=== PATIENT | female | born 2000 | race Two or more races ===

== ENCOUNTER 2025-03-03 22:37 | Emergency (ER) | payer MEDICAID, SELFPAY ==
[2025-03-03 22:38] VITALS: BMI 24.4
--- NOTE | 2025-03-03 22:42 | PD.EDABDPN ---
ED Abdominal Pain RME/HPI General Chief Complaint: Abdominal Pain Stated complaint: UPPER ABD PAIN AND NAUSEA Time seen by provider: 03/03/25 22:53 Arrival date/time: 03/03/25 22:37 RME / HPI RME / HPI narrative: This section includes all my notes and documentations, including HPI, PE, and ED course. Darrius Hurtado MD HPI: 24yo female with no significant past medical history presents to the ED for a chief complaint of abdominal/pelvic pain with nausea and vomiting on and off for one week. No fever, chills, UTI symptoms. No other complaints. ROS: All negative except as documented in HPI. Physical Exam: General: Alert and oriented. No acute distress when remaining still. Eyes: Conjunctivae and lids clear. ENT: No nasal congestion. Neck: Supple. Heart: RRR. Lungs: No respiratory distress. Good air movement. No rhonchi, wheezing, rales. Abdomen: Soft with pelvic tenderness. Normal bowel sounds. No distension. No rebound or guarding. Back: No CVA tenderness. Skin: Warm and dry. Neuro: Alert and oriented X 3. I reviewed all diagnostic test results. My review of the US transvaginal report is ovarian cysts. My review of the US gallbladder report is NAD. My review of the CT abdomen pelvis report is pelvic fluid. Blood tests and urine tests are unremarkable. At this point, diagnoses include ovarian cyst(s). Treatment here included NS,.Toradol, and Zofran. Significant improvement noted. 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 Based on my best medical judgment, made decision no further evaluation or treatment indicated at this time. Patient understands and agrees to the discharge instructions customized and printed, see below. Discharge instructions from Dr. Hurtado: -- After extensive evaluation, there is no emergency such as appendicitis needing urgent surgery. -- Your discomfort is from ovarian cyst(s). -- In young females, it is normal to have ovarian cysts (sacs of fluid) that come and go depending on the menstruation. If a cyst ruptures, it can cause severe pain until your body reabsorbs the fluid. Larger cyst can cause pain. -- Apply ice or heat if helpful. Tylenol/ibuprofen as needed. -- See a private doctor on 03/06/2025 for recheck and further care. Ask to review all test results and official radiology reports, to make sure you receive all necessary follow-ups and monitoring. Ask for a referral to see a assembler caterpillar spider to make sure there is no other serious underlying conditions. -- Seek immediate medical care with worsening, fever, or with any concerns. Darrius Hurtado MD Related Data Allergies Allergy/AdvReac Type Severity Reaction Status Date / Time No Known Allergies Allergy Verified 03/03/25 22:46 Review of Systems Review of Systems Systems Reviewed: All systems reviewed, normal except as documented Past Medical History Social History SMOKING STATUS: Never smoker ED Exam Narrative Physical exam: As noted in HPI. Course Quality Measures none Orders Category Date Time Status Saline [Insert IV] NOW Care 03/03/25 22:[address] abdomen pelvis wo con Stat Exams 03/03/25 22:52 Completed US gall bladder Stat Exams 03/04/25 00:00 Taken US transvaginal Stat Exams 03/04/25 00:00 Taken Amylase Stat Lab 03/03/25 23:14 Completed Bilirubin,Direct Stat Lab 03/03/25 23:14 Completed CBC Stat Lab 03/03/25 23:14 Completed CMP [Comprehensive Metabolic Panel] Stat Lab 03/03/25 23:14 Completed HCG Qualitative,Urine Stat Lab 03/03/25 22:53 Completed Lipase Stat Lab 03/03/25 23:14 Completed Magnesium Stat Lab 03/03/25 23:14 Completed UA, C/S IF [Urinalysis, C/S if Indicated] Stat Lab 03/03/25 22:53 Completed Ketorolac Inj [Toradol Inj] Med 03/03/25 22:51 Discontinued 30 mg IVP X1 ONE Ondansetron Inj [Zofran Inj] Med 03/03/25 22:51 Discontinued 4 mg IVP X1 ONE Sodium Chloride 0.9% 1000 ml [Ns] 1,000 ml Med 03/03/25 22:51 Discontinued IV 999 mls/hr Vital Signs Vital signs: Vital Signs Temperature 98.4 F 03/03/25 22:56 Pulse Rate 106 H 03/03/25 22:56 Respiratory Rate 16 03/03/25 22:56 Blood Pressure 112/89 H 03/03/25 22:56 Pulse Oximetry (%) 100 03/03/25 22:56 Oxygen Delivery Method Room Air 03/03/25 22:56 Abdominal Pain MDM MDM Narrative MDM Narrative:: 24yo female with no significant past medical history presents to the ED for a chief complaint of abdominal/pelvic pain with nausea and vomiting on and off for one week. No fever, chills, UTI symptoms. No other complaints. Patient data External records reviewed:: [facility] previous records (Per chart review, patient has no relevant previous ED visits.) Clinical information provided by:: patient Social determinants that could affect healthcare access:: none Patient has the following chronic illnesses:: none How is presenting disease/condition affected by chronic disease/condition?: no chronic disease Evaluation data The following diagnostics were reviewed and interpreted by me:: lab results and radiology exam(s) Lab and/or radiology exams considered but not ordered:: none Interpretation Summary: I reviewed all diagnostic test results. My review of the US transvaginal report is ovarian cysts. My review of the US gallbladder report is NAD. My review of the CT abdomen pelvis report is pelvic fluid. Blood tests and urine tests are unremarkable. Medications / Prescriptions Medications or Prescriptions considered but not ordered:: none Medication administrations:: Medication Administration History Discontinued Medications Sodium Chloride (Ns) 1,000 mls @ 999 mls/hr IV .Q1H1M ONE Stop: 03/03/25 23:51 Last Infusion: 03/03/25 23:54 Dose: Infused Documented By: Admin: 03/03/25 23:02 Dose: 999 mls/hr Documented By: BD Ketorolac Tromethamine (Ketorolac Inj 30 Mg/Ml Vial) 30 mg IVP X1 ONE Stop: 03/03/25 22:52 Last Admin: 03/03/25 23:03 Dose: 30 mg Documented By: BD Ondansetron HCl (Ondansetron Inj 2 Mg/Ml Inj 2 Ml) 4 mg IVP X1 ONE; Protocol Stop: 03/03/25 22:52 Last Admin: 03/03/25 23:03 Dose: 4 mg Documented By: BD NS, Toradol, Zofran Consultations Consultation(s) initiated? (list below): No Diagnosis Differential diagnosis abdominal pain: acute appendicitis, calculus of kidney, constipation, diverticulitis, endometriosis, pancreatitis, small bowel obstruction and other (Biliary colic, ovarian cyst, GERD, gastritis, PUD) Most likely diagnosis given after review of the tests above:: Ovarian cyst Admission Indicated Admission indicated?: not indicated Explain why admission is indicated or not indicated:: With significant improvement and no condition needing emergent intervention, there was no indication for admission. Admission Request Was there a request for admission?: No Disposition Plan Disposition Plan: Discharge Discharge Attestation Discharge Attestation: The patient and all family members were given an opportunity to ask questions and understood the discharge instructions. Discharge instructions specifically effects, indications for sooner follow up or return to the emergency department, and the expected course of current diagnosis. Patient condition: Stable Discharge Plan Plan Patient Disposition: HOME (Self Care) Prescriptions/Referrals Referrals: Gladis Cuello MD [Primary Care Provider] - In 1 week Problem List Clinical Impression: Ovarian cyst Patient/Caregiver Discharge Instructions Discharge Activity: activity as tolerated Education Materials: ED Ovarian Cyst Additional Instructions: Discharge instructions from Dr. Hurtado: -- After extensive evaluation, there is no emergency such as appendicitis needing urgent surgery. -- Your discomfort is from ovarian cyst(s). -- In young females, it is normal to have ovarian cysts (sacs of fluid) that come and go depending on the menstruation.? If a cyst ruptures, it can cause severe pain until your body reabsorbs the fluid. Larger cyst can cause pain. -- Apply ice or heat if helpful.? Tylenol/ibuprofen as needed. -- See a private doctor on 03/06/2025 for recheck and further care. Ask to review all test results and official radiology reports, to make sure you receive all necessary follow-ups and monitoring. Ask for a referral to see a assembler caterpillar spider to make sure there is no other serious underlying conditions. -- Seek immediate medical care with worsening, fever, or with any concerns. Instrucciones de marv del Dr. Hurtado: -- Tras shanda evaluaci?n exhaustiva, no se trata de shanda emergencia nyla apendicitis que requiera cirug?a urgente. -- Sandhu malestar se debe a quistes ov?ricos. -- En mujeres j?venes, es normal tener quistes ov?ricos (sacos de l?quido) que aparecen y desaparecen seg?n la menstruaci?n. Si un quiste se rompe, puede causar un dolor intenso hasta que el cuerpo reabsorba el l?quido. Un quiste m?s katerine puede causar dolor. -- Aplique hielo o calor si le resulta ?til. Tylenol/ibuprofeno seg?n sea necesario. -- Consulte con un m?dico particular el 06/03/2025 para shanda nueva revisi?n y atenci?n adicional. Solicite la revisi?n de todos los resultados de las pruebas y los informes radiol?gicos oficiales para asegurarse de recibir todos los controles y monitoreos necesarios. Solicite shanda derivaci?n a un ginec?logo para asegurarse de que no haya otras afecciones subyacentes graves. -- Busque atenci?n m?dica inmediata si presenta empeoramiento, fiebre o cualquier inquietud. Print Language: Zambian Stand Alone Forms: Kimberley Award Info., Patient Portal Info Letter
--- NOTE | 2025-03-03 22:52 | XR_ITS ---
Examination: CT abdomen and pelvis without contrast. Coronal 3-D reconstructions. Sagittal 2-D reconstructions. Date and time of exam:March 03, 2025 11:58 PM INDICATIONS: Upper abdominal pain today CTDI: vol (mGy): 8.33 DLP: (mGycm): 406 Technique: Axial images of the abdomen have been obtained, 3 mm slice thickness Intravenous contrast material has not been administered. Low dose protocols were performed. One or more of the following dose reduction techniques were used; automated exposure control, adjustment of the mA and/or KV according to patient size, use of iterative reconstruction technique. Findings: No focal liver or splenic lesions No gallstones No pancreatic mass No renal or ureteral calculi, no hydronephrosis Aorta normal size 10 mm fat-containing umbilical hernia Normal appendix No bowel obstruction Anteverted uterus No adnexal mass Urinary bladder is intact Mild free fluid in the pelvis IMPRESSION: No renal or ureteral calculi, no hydronephrosis Normal appendix No bowel obstruction diverticulitis or free air Mild free fluid in the pelvis, consider pelvic sonography follow-up
[2025-03-03 22:56] VITALS: BP 112/89; PULSE 106; RESP 16; TEMP 36.9; O2SAT 100
[2025-03-03] MEDS: SODIUM CHLORIDE 0.9% 1000 ML 1,000 ML 999 ML IV (23:02)
[2025-03-03] MEDS: KETOROLAC INJ 30 MG/ML VIAL IVP (23:03)
[2025-03-03] MEDS: ONDANSETRON INJ 2 MG/ML INJ 2 ML 4 MG IVP (23:03)
[2025-03-03 23:16] LABS: Collection Type, Urine Clean Catch
[2025-03-03 23:26] LABS: Bilirubin,Urine Negative (Negative); Blood,Urine Negative (Negative); Clarity,Urine Clear (Clear/Hazy); Color,Urine Yellow (Lt Yel-Yel); Culture Indicated,Urine Not Indicated; Glucose, Urine Negative (Negative); Ketones,Urine Negative (Negative); Leukocyte Esterase,Urine Negative (Negative); Nitrite,Urine Negative (Negative); Protein,Urine Negative (Neg - Trace); RBC,Urine 2 /hpf (0-3); Specific Gravity,Urine 1.032 (1.001-1.035); Squamous Epithelial Cell,Urine 1 /hpf (0-5); Urobilinogen,Urine Negative mg/dL (0.0-1.0); WBC,Urine 1 /hpf (0-5)
[2025-03-03 23:27] LABS: Basophils # (Auto) 0.1 Thou/mm3 (0.0-0.2); Basophils % (Auto) 1 % (0-2.5); Eosinophils # (Auto) 0.3 Thou/mm3 (0.0-0.5); Eosinophils % (Auto) 3 % (0-10); Hematocrit 34.7 % (36.0-46.0); Hemoglobin 11.8 g/dL (12.0-16.0); Immature Granulocytes % (Auto) 0 % (0-0); Immature Granulocytes Auto 0.03 Thou/mm3 (0.00-0.00); Lymphocytes # (Auto) 2.7 Thou/mm3 (1.0-4.8); Lymphocytes % (Auto) 32 % (10-50); Mean Corpuscular Hemoglobin 27.9 pg (25.0-35.0); Mean Corpuscular Volume 82 fL (80-100); Monocytes # (Auto) 0.5 Thou/mm3 (0.0-0.8); Monocytes % (Auto) 5 % (0-12); Neutrophils # (Auto) 5.1 Thou/mm3 (1.8-7.7); Neutrophils % (Auto) 59 % (37-80); Nucleated Red Blood Cell % 0 /100 WBC (0); Platelet Count 222 Thou/mm3 (140-440); RDW Standard Deviation 39.4 fL (36.4-46.3); Red Blood Count 4.23 Miln/mm3 (4.00-5.20); White Blood Count 8.6 Thou/mm3 (3.6-11.0)
[2025-03-03 23:49] LABS: Alanine Aminotransferase 19 U/L (10-49); Albumin, Serum 4.3 gm/dL (3.5-5.0); Albumin/Globulin Ratio 2.3 (1.2-2.2); Alkaline Phosphatase 66 U/L (46-116); Amylase 96 U/L (30-118); Anion Gap 10 (7-16); Aspartate Amino Transferase 14 U/L (0-34); BUN/Creatinine Ratio 20 Ratio (12-20); Bilirubin,Direct 0.1 mg/dL (0.0-0.3); Bilirubin,Total 0.3 mg/dL (0.3-1.2); Blood Urea Nitrogen 12 mg/dL (9-23); Calcium 8.9 mg/dL (8.3-10.6); Calcium (Corrected) 8.9 mg/dL (8.5-10.1); Carbon Dioxide 22.7 mMol/L (20.0-31.0); Chloride 107 mMol/L (98-107); Creatinine (Component) 0.6 mg/dL (0.6-1.3); Estimated Creatinine Clearance 119.6 mL/min (>60); Globulin 1.9 gm/dL (2.3-3.5); Glucose 86 mg/dL (74-106); Lipase 34 U/L (12-53); Magnesium 1.9 mg/dL (1.6-2.6); Osmolality,Calculated 278 (275-295); Potassium 3.6 mMol/L (3.4-5.1); Sodium 140 mMol/L (136-145); Total Protein 6.2 gm/dL (5.7-8.2); eGFR > 60 See Note
[2025-03-03 23:51] LABS: HCG Qualitative,Urine Negative
--- NOTE | 2025-03-04 | XR_ITS ---
Examination: Transvaginal ultrasound of the pelvis, complete Technique: Transvaginal sonographic images pelvis performed using alejandro scale imaging Exam date and time: March 04, 2025 at 0014 hours INDICATIONS: Pelvic pain beginning 4 days ago FINDINGS: Uterus 8.0 cm endometrial stripe 0.1 cm Mild free fluid in the cervix Right ovary 3.4 cm arterial flow 18 mm follicular cyst Left ovary 3.2 cm arterial flow small follicles IMPRESSION: No uterine or mastoid uterine gestation Mild free fluid in the cervix.
--- NOTE | 2025-03-04 | XR_ITS ---
Examination: Abdomen sonogram, Limited Date and time of exam: March 04, 2025 at 0006 hours INDICATIONS: Epigastric pain one week with nausea Technique: Real-time alejandro scale transabdominal sonographic images of the upper abdomen obtained. Findings: Normal gallbladder Normal common bile duct 0.3 cm Pancreatic area 1.8 cm Liver 15.5 cm fatty infiltration smooth contour No focal liver lesions Normal hepatopedal portal venous and Patent IVC IMPRESSION: Normal gallbladder
--- NOTE | 2025-03-04 01:20 | PRELIM_ITS ---
Right upper quadrant abdominal ultrasound with Doppler and wave Doppler spectral analysis. March 04, 2025 at 0006 hours Clinical history: Right upper quadrant tenderness. Technique: Grayscale and color flow images of the right upper quadrant are provided. Hepatic and portal veins were also imaged with color flow images. Comparison: No prior study is available for comparison. Findings: The liver demonstrates mild increased echogenicity. No intrahepatic biliary ductal dilatation. No gallbladder calculus, wall thickening or pericholecystic fluid is demonstrated. The common bile duct is normal in caliber at 3.1 mm. The pancreas is unremarkable to the extent visualized. The imaged portions of the right kidney are within normal limits. The portal vein is patent with hepatopetal flow normal with Doppler spectral analysis. Impression: Mild liver steatosis. No evidence of cholecystitis. Report Electronically Signed By: Hank Gage 03/04/2025 1:19:59 AM [EST]
--- NOTE | 2025-03-04 01:27 | PRELIM_ITS ---
Pelvic ultrasound (transvaginal) with Doppler and wave Doppler spectral analysis. March 04, 2025 0014 hours Clinical history: Pelvic pain. Technique: Real-time, grayscale, transvaginal pelvic ultrasound was performed using Duplex scanning including arterial inflow, venous outflow, color and spectral Doppler. Comparison: No prior study is available for comparison. Findings: The uterus is normal in size measuring 8.0 x 3.0 x 3.9 cm. The endometrium is unremarkable and measures 0.1 cm. The right ovary measures 3.4 x 2.0 x 2.4 cm, mildly complex cystic lesion measuring 1.8 x 1.3 x 1.4 cm. Fluid within the cervical canal. The left ovary measures 3.2 x 1.7 x 2.3 cm, follicles noted Both ovaries demonstrate color flow and spectral waveforms on Doppler evaluation. There is no adnexal mass. There is no free fluid on the submitted images. Impression: Fluid within the cervical canal. Please, correlate with pelvic exam. No evidence of ovarian torsion. Mildly complex cystic lesion in the right ovary, probably functional. Consider follow-up in 3 months. Report Electronically Signed By: Hank Gage 03/04/2025 1:27:10 AM [EST]
--- NOTE | 2025-03-04 05:13 | PRELIM_ITS ---
CT scan of the abdomen and pelvis without intravenous contrast (axial sections with sagittal and coronal reformats) March 03, 2025 at 2358 hours Clinical History: Abdominal pain. Correlated with prior Ultrasound of March 04, 2025. Findings: The lung bases are clear. The liver, gallbladder, pancreas, spleen, kidneys and adrenals are unremarkable on this noncontrast study. No evidence of bowel obstruction. The appendix is within normal limits. There is no mesenteric or retroperitoneal adenopathy. The urinary bladder is unremarkable. There is no free fluid or free air. The osseous structures are unremarkable. Questionable fistulous tract from the stomach to the anterior abdominal wall (axial image 71 of 145) limits. A few scattered air-fluid levels in the small bowel without dilation or wall thickening. The uterus and ovaries are within normal limits. Impression: Possible mild enteritis. No evidence of kidney or ureteral stones. Report Electronically Signed By: Hank Gage 03/04/2025 5:13:12 AM [EST]
== END 2025-03-04 01:08 | disposition home or self-care (01) ==
PROVIDERS: Emergency Provider Emergency Medicine; PCP Obstetrics & Gynecology
DX: N83.01 Follicular cyst of right ovary (principal); K76.0 Fatty (change of) liver, not elsewhere classified
CPT/HCPCS: 36415; 74176; 76705; 76830; 80053; 81001; 81025; 82150; 82248; 83690; 83735; 85025; 96361; 96374; 96375; 99284; J1885; J2405; J7030